=== PATIENT | male | born 1980 | race Caucasian/White ===

== ENCOUNTER 2017-11-01 02:19 | Emergency (ER) | payer SELFPAY ==
[~2017-11-01] VITALS: Ht 195.6 cm; Wt 83.9 kg
[2017-11-01 02:23] VITALS: BP 133/82
[2017-11-01 02:25] VITALS: BP 133/82
--- NOTE | 2017-11-01 02:36 | Emergency Room Report ---
History of Present Illness General Chief Complaint: Medical Clearance Source: Patient Present Illness HPI 37-year-old male, brought in by law enforcement for medical clearance. Patient admits to drinking today. States that he does not know why he is arrested. He only remembers going to a store buying things for his girlfriend. He sustained a frontal hematoma, states that he may have fell. He is currently clinically sober. Denying any pain. Denies any headache neck pain nausea vomiting blurry vision motor or sensory weakness Allergies: Coded Allergies: PENICILLINS (Verified Allergy, Unknown, 11/01/17) Patient History Past Medical History: see triage record Past Surgical History: none Pertinent Family History: none Reviewed Nursing Documentation: PMH: Agreed; PSxH: Agreed Nursing Documentation-PMH Past Medical History: No Stated History Review of Systems All Other Systems: negative except mentioned in HPI Physical Exam Vital Signs Date Time Temp Pulse Resp B/P (MAP) Pulse Ox O2 Delivery O2 Flow Rate FiO2 11/01/17 02:22 97.8 75 16 133/82 98 Room Air 97.9 Sp02 EP Interpretation: reviewed, normal General Appearance: other - Disheveled however awake and alert, clinically sober, calm and cooperative, conversing appropriately Head: normocephalic - Non-boggy 1 x 1 cm frontal hematoma Eyes: bilateral eye normal inspection, bilateral eye PERRL, bilateral eye EOMI ENT: normal ENT inspection, normal pharynx, normal voice, moist mucus membranes Neck: normal inspection, full range of motion, supple Respiratory: normal inspection, lungs clear, normal breath sounds, no respiratory distress, no retraction, no wheezing, speaking full sentences, chest symmetrical Cardiovascular #1: normal inspection, regular rate, rhythm, normal capillary refill Cardiovascular #2: 2+ radial (R), 2+ radial (L) Gastrointestinal: normal inspection, non tender, soft, non-distended, no guarding Musculoskeletal: normal inspection, back normal, normal range of motion, non- tender Neurologic: normal inspection, alert, oriented x3, responsive, motor strength/ tone normal, sensory intact, normal gait, speech normal Psychiatric: normal inspection, judgement/insight normal, memory normal Skin: normal inspection, normal color, no rash, warm/dry, well hydrated, normal turgor Medical Decision Making Diagnostic Impression: Primary Impression: Traumatic hematoma of forehead ER Course 37-year-old male brought in by law enforcement for medical clearance, frontal hematoma DDX: Isolated frontal hematoma. Patient is currently clinically sober. He is neurologically intact, not exhibiting any symptoms to suggest intracranial hemorrhage . Plan: None ER course: Patient has remained stable during ED stay. Disposition: Patient is to be discharged to law enforcement Please note that this Emergency Department Report was dictated using [employer] solderer technology software, occasionally this can lead to erroneous entry secondary to interpretation by the dictation equipment Last Vital Signs Date Time Temp Pulse Resp B/P (MAP) Pulse Ox O2 Delivery O2 Flow Rate FiO2 11/01/17 02:22 97.8 75 16 133/82 98 Room Air 97.9 Disposition: D/C TO LAW ENFORCEMENT IN [facility] Condition: Stable Departure Forms: Shelter Clearance Patient Instructions: Vanessa, [id number] Armani Camacho M.D. Nov 01, 2017 02:36
== END 2017-11-01 02:40 ==
LOC: EMR 02:28
DX: S00.83XA Contusion of other part of head, initial encounter (principal); X58.XXXA Exposure to other specified factors, initial encounter; Y92.9 Unspecified place or not applicable; Z88.0 Allergy status to penicillin
CPT/HCPCS: 99283